=== PATIENT | female | born 1990 | race Hispanic/Latino ===

== ENCOUNTER 2020-02-23 07:00 | Day surgery (SDC) | payer BC, MEDICAID ==
[2020-02-23] VITALS (18 sets, daily range): BP systolic 97–138; BP diastolic 60–91
[~2020-02-23] VITALS: Ht 144.8 cm; Wt 48.5 kg
[~2020-02-23 07:00] MED LIST: SODIUM CHLORIDE 0.9% 1000ML 1,000 ML IV ONE; SODIUM CHLORIDE 0.9% 500ML 0 ML IV ONE
[2020-02-23] MEDS ORDERED: IOHEXOL-350 50ML VIAL IV ONE (07:15)
[2020-02-23] MEDS ORDERED: INDOMETHACIN 50 MG SUPP.RECT RC SCH (07:30)
[2020-02-23] MEDS ORDERED: IBUP-2070 PO (08:37)
[2020-02-23] MEDS ORDERED: FENTANYL CITRATE PF 50 MCG/1 ML 2ML VIAL ONE (10:35)
[2020-02-23] MEDS ORDERED: PROPOFOL 10 MG/ML 20ML VIAL IV ONE (10:35)
[2020-02-23] MEDS ORDERED: LIDOCAINE HCL 1% 20 ML VIAL ONE (10:35)
[2020-02-23] MEDS ORDERED: IPRATROPIUM/ALBUTEROL SULFATE 3 ML SOLUTION IH ONE (11:24)
== END 2020-02-23 13:05 | disposition home or self-care (01) ==
LOC: ENDO 07:00 → DAH 07:00 → ENDO 13:05
PROVIDERS: ATTEND Internal Medicine
DX: K80.50 Calculus of bile duct without cholangitis or cholecystitis without obstruction (principal)
CPT/HCPCS: 43262; 43264; 43275; 74330; 81025; 94640; A4215; A4221; A4222; A4223; A4606; A4657 ×2; A4663; C1769; C1773; J2704; J3010; J7030; Q9967; J7040